=== PATIENT | female | born 1995 ===

== ENCOUNTER 2022-11-25 05:29 | Day surgery (SDC) | payer OTHER ==
[~2022-11-25] VITALS: Ht 170.2 cm; Wt 79.4 kg
[~2022-11-25 05:29] MED LIST: AMBIEN10 MG PO
[2022-11-25] MEDS ORDERED: ACETAMINOPHEN500 M2 PO (08:43)
[2022-11-25] MEDS ORDERED: AMOX1TAB5 PO (08:44)
[2022-11-25] MEDS ORDERED: PROTONIX40 MG PO (08:45)
== END 2022-11-25 15:25 | disposition home or self-care (01) ==
LOC: CIR.AMB 05:29
PROVIDERS: ATTEND Surgery
DX: I87.2 Venous insufficiency (chronic) (peripheral) (principal); I83.892 Varicose veins of left lower extremity with other complications; I38 Endocarditis, valve unspecified; Z20.822 Contact with and (suspected) exposure to COVID-19; Z88.2 Allergy status to sulfonamides; Z86.16 Personal history of COVID-19